=== PATIENT | male | born 1955 | race Caucasian/White ===

== ENCOUNTER 2017-08-22 15:28 | Outpatient (RCR) | payer OTHER ==
[~2017-08-22 15:28] MED LIST: APIX5TAB PO; ASPI-715 PO; ATOR-1 PO; ATOR10TA65 PO; ATOR40TA24 PO; CANA100T PO; CANA300T PO; CARV25TA78 PO; CARVEDILOL; CYAN500T38 PO; DOCU-416 PO; GLI5 PO; INSU100I30 SQ; INSU100I35 SQ; INSU100V24 SQ; ISOS1POW2 MC; ISOS30TA54 PO; ISOSORBIDE; KRIL1CAP6 PO; KRIL500C2 PO; LANI SUBQ; LISI2.5T60 PO; LISI20TA29 PO; LISINOPRIL; MEPE50TA29 PO; MET500 PO; METF-410 PO; METF-420 PO; NITR0.4T3 SL; ONDA8TAB91 PO; OXYC-865 PO; PEN1DIS. MC; TURM500C7 PO; UBID100C48 PO; [UNRECOGNIZED DRUG - CODE] ASDIRECTED; [UNRECOGNIZED DRUG - OTHER]
[2017-08-27] MEDS ORDERED: IOPAMIDOL 76% 75 ML INFUS BTL 75 ML ONE (09:25)
[2017-08-27] MEDS ORDERED: NS 0.9% 50 ML VIAL 50 ML ONE (09:26)
[2017-09-24] MEDS ORDERED: GOLYTE PO (16:19)
== END 2017-09-26 ==
LOC: CT 15:28
PROVIDERS: ATTEND Internal Medicine Hematology
DX: Z02.9 Encounter for administrative examinations, unspecified (principal)
CPT/HCPCS: J7050; Q9967

== ENCOUNTER 2017-10-13 17:16 | Emergency (ER) | payer OTHER ==
[~2017-10-13] VITALS: Ht 177.8 cm; Wt 120.7 kg
[~2017-10-13 17:16] MED LIST changes: +GOLYTE PO
--- NOTE | 2017-10-13 17:36 | ER Report ---
History and Physical Time Seen By MD: 17:36 Hx. of Stated Complaint: Pt has been "tight" and sob today. He has had the flu and has been battling a sinus infection. (SARITHA SAUNDERS MD) HPI/ROS CHIEF COMPLAINT: cough, shortness of breath HISTORY OF PRESENT ILLNESS: This is a 62 year old male. He has been coughing and short of breath for a week, worsening over the last few days. Seen at urgent care and started on Doxycycline for a borderline pneumonia. He is positive for influenza B, was too far along to start Tamiflu, but his did take it prophylactically. He has a prescription for Benzonatate, but this is not helping at all with cough. Has had some problems with nausea when trying Codeine in the past. He has an albuterol inhaler which was helping when using it. He feels like when he falls asleep, he awakes gasping for breath. Having intermittent fevers and chills. REVIEW OF SYSTEMS: Constitutional: No fever or chills. Eyes: No vision changes. ENT: Significant congestion. Cardiovascular: No chest pain. Respiratory: As above. Gastrointestinal: No abdominal pain. No nausea or vomiting. Musculoskeletal: some rib pain from coughing. Skin: No rashes. Neurological: No weakness. Mild headache with cough. (SARITHA SAUNDERS MD) Allergies: Coded Allergies: codeine (Unverified Allergy, Intermediate, NAUSEA/VOMITING, 10/13/17) Home Meds Active Scripts Prednisone (PREDNISONE) 20 Mg Tablet, 40 MG PO DAILY Y for ANXIETY for 5 Days, # 10 TAB Prov:SOMMER HUNG MD 10/13/17 Peg/Electrolytes (GOLYTELY SOLUTION) 4,000 Ml Soln, 1 GAL PO ONCE, #1 GAL 0 Refills Prov:DEBORAH ARAGON MD 09/24/17 Insulin Glargine,Hum.rec.anlog (LANTUS SOLOSTAR) 100 Unit/1 Ml Insuln.pen, 50 UNIT SQ BID, #33 CART 4 Refills Prov:SAGAR MAR MD 04/03/17 Blood Sugar Diagnostic, Drum (Accu-Chek Compact Plus) 1 Each Strip, 1 STRIP ASDIRECTED 6XD, #2 BOX 11 Refills Test up to 6 times per day. Prov:SAGAR MAR MD 01/23/17 Insulin Aspart (NOVOLOG FLEXPEN) 100 Unit/1 Ml Insuln.pen, 5 UNIT SQ DIRECTED for 1 Day, #1 CART 11 Refills 5 units daily before lunch Prov:SAGAR MAR MD 01/10/17 Canagliflozin (INVOKANA) 300 Mg Tablet, 1 TAB PO DAILY, #90 TAB 3 Refills Prov:SAGAR MAR MD 12/31/16 Pen Needle, Diabetic, Safety (PEN NEEDLE) 1 Each Dis.needle, 1 EACH MC BID, # 180 3 Refills Prov:SAGAR MAR MD 12/11/16 Metformin Hcl (METFORMIN HCL) 1,000 Mg Tablet, 1 TAB PO BID, #180 TAB 3 Refills Prov:SAGAR MAR MD 12/11/16 Reported Medications Ubidecarenone (COQ-10) 100 Mg Capsule, 1 CAP PO DAILY, CAPSULE 01/10/17 Nitroglycerin (NITROGLYCERIN) Unknown Strength Tab.subl, SL Q5MIN 01/10/17 Cyanocobalamin (Vitamin B-12) (VITAMIN B-12) 500 Mcg Tablet, 1-2 TAB PO DAILY 12/11/16 Isosorbide Mononitrate (ISOSORBIDE MONONITRATE ER) 30 Mg Tab.er.24h, 30 MG PO BID 02/27/16 Lisinopril (LISINOPRIL) 20 Mg Tablet, 20 MG PO QDAY, TAB 02/27/16 Carvedilol (CARVEDILOL) 25 Mg Tablet, 25 MG PO BID, TAB 02/27/16 Turmeric Root Extract (TURMERIC) Unknown Strength Capsule, 500 MG PO TID, CAPSULE 02/07/16 Krill Oil (KRILL OIL) Unknown Strength Capsule, 500 MG PO DAILY, CAPSULE 02/07/16 Reviewed Nurses Notes: Yes (SARITHA SAUNDERS MD) Hx Smoking: Yes (PT QUIT IN 2006, SMOKED 1 PPD X 40 YEARS) Smoking Status: Former Smoker Exposure to Second Hand Smoke?: Yes Hx Substance Use Disorder: No Hx Alcohol Use: No (SARITHA SAUNDERS MD) Constitutional Vital Sign - Last 24 Hours 10/13/17 10/13/17 10/13/17 10/13/17 17:21 17:26 17:31 18:01 Temp 98.2 Pulse 72 75 74 Resp 20 25 B/P (MAP) 157/88 (111) 157/88 Pulse Ox 91 96 92 O2 Delivery Room Air 10/13/17 10/13/17 10/13/17 10/13/17 18:10 18:10 18:16 18:25 Pulse 77 78 76 Resp 16 16 Pulse Ox 92 92 O2 Delivery Room Air 10/13/17 10/13/17 10/13/17 18:31 18:46 18:54 Pulse 72 76 B/P (MAP) 154/82 (106) Pulse Ox 89 90 (SOMMER HUNG MD) Physical Exam General Appearance: The patient is alert. No acute distress. Eyes: Pupils are equal, round. No pallor, injection or icterus. ENT: Mucous membranes are moist. Normal oral mucosa. Posterior oropharynx was erythematous with post nasal drainage. Nasal mucosa erythematous and lots of mucous. Normal tympanic membranes with effusions, but no redness or bulging. Neck: Supple and non tender. Respiratory: Lungs with wheezing on the right and diminished with some fine rales in the right base. Cardiovascular: Regular rate and rhythm. No murmurs, gallops or rubs. Normal capillary refill. Gastrointestinal: Abdomen is soft and non tender. Nondistended. Neurological: Alert and oriented x3. No focal neurologic deficits Skin: Warm and dry. DIFFERENTIAL DIAGNOSIS: After history and physical exam, differential diagnosis was considered for shortness of breath including but not limited to pulmonary infectious process, COPD, asthma, pulmonary embolus and congestive heart failure. ([facility] MD) Medical Decision Making Data Points Result Diagram: 10/13/17 1755 10/13/17 1755 Laboratory Hematology Test 10/13/17 17:55 Red Blood Count 5.76 M/uL (4.00-5.60) Mean Corpuscular Volume 83.5 fL (80.0-96.0) Mean Corpuscular Hemoglobin 28.9 pg (26.0-33.0) Mean Corpuscular Hemoglobin Concent 34.6 g/dL (32.0-36.0) Red Cell Distribution Width 14.0 % (11.5-14.5) Mean Platelet Volume 8.3 fL (7.2-11.1) Neutrophils (%) (Auto) 66.2 % (39.4-72.5) Lymphocytes (%) (Auto) 23.4 % (17.6-49.6) Monocytes (%) (Auto) 9.3 % (4.1-12.4) Eosinophils (%) (Auto) 0.9 % (0.4-6.7) Basophils (%) (Auto) 0.2 % (0.3-1.4) Nucleated RBC Relative Count (auto) 0.1 /100WBC Neutrophils # (Auto) 6.0 K/uL (2.0-7.4) Lymphocytes # (Auto) 2.1 K/uL (1.3-3.6) Monocytes # (Auto) 0.8 K/uL (0.3-1.0) Eosinophils # (Auto) 0.1 K/uL (0.0-0.5) Basophils # (Auto) 0.0 K/uL (0.0-0.1) Nucleated RBC Absolute Count (auto) 0.00 K/uL Sodium Level 133 mmol/L (137-145) Potassium Level 4.1 mmol/L (3.5-5.0) Chloride Level 99 mmol/L (98-107) Carbon Dioxide Level 24 mmol/L (22-30) Blood Urea Nitrogen 10 mg/dl (9-21) Creatinine 0.50 mg/dl (0.66-1.25) Glomerular Filtration Rate Calc > 60.0 Random Glucose 331 mg/dl (75-110) Lactate 1.2 mmol/L (0.7-2.1) Calcium Level 9.1 mg/dl (8.4-10.2) Total Bilirubin 0.8 mg/dl (0.2-1.3) Aspartate Amino Transf (AST/SGOT) 22 U/L (0-35) Alanine Aminotransferase (ALT/SGPT) 34 U/L (0-56) Alkaline Phosphatase 85 U/L (0-126) Troponin I < 0.012 ng/ml Total Protein 7.6 gm/dl (6.3-8.2) Albumin 3.8 g/dl (3.5-5.0) Chemistry Test 10/13/17 17:55 White Blood Count 9.1 k/uL (4.5-11.0) Red Blood Count 5.76 M/uL (4.00-5.60) Hemoglobin 16.6 g/dL (14.0-18.0) Hematocrit 48.1 % (42.0-52.0) Mean Corpuscular Volume 83.5 fL (80.0-96.0) Mean Corpuscular Hemoglobin 28.9 pg (26.0-33.0) Mean Corpuscular Hemoglobin Concent 34.6 g/dL (32.0-36.0) Red Cell Distribution Width 14.0 % (11.5-14.5) Platelet Count 254 K/uL (150-450) Mean Platelet Volume 8.3 fL (7.2-11.1) Neutrophils (%) (Auto) 66.2 % (39.4-72.5) Lymphocytes (%) (Auto) 23.4 % (17.6-49.6) Monocytes (%) (Auto) 9.3 % (4.1-12.4) Eosinophils (%) (Auto) 0.9 % (0.4-6.7) Basophils (%) (Auto) 0.2 % (0.3-1.4) Nucleated RBC Relative Count (auto) 0.1 /100WBC Neutrophils # (Auto) 6.0 K/uL (2.0-7.4) Lymphocytes # (Auto) 2.1 K/uL (1.3-3.6) Monocytes # (Auto) 0.8 K/uL (0.3-1.0) Eosinophils # (Auto) 0.1 K/uL (0.0-0.5) Basophils # (Auto) 0.0 K/uL (0.0-0.1) Nucleated RBC Absolute Count (auto) 0.00 K/uL Glomerular Filtration Rate Calc > 60.0 Lactate 1.2 mmol/L (0.7-2.1) Calcium Level 9.1 mg/dl (8.4-10.2) Total Bilirubin 0.8 mg/dl (0.2-1.3) Aspartate Amino Transf (AST/SGOT) 22 U/L (0-35) Alanine Aminotransferase (ALT/SGPT) 34 U/L (0-56) Alkaline Phosphatase 85 U/L (0-126) Troponin I < 0.012 ng/ml Total Protein 7.6 gm/dl (6.3-8.2) Albumin 3.8 g/dl (3.5-5.0) (SOMMER HUNG MD) ED Course/Re-evaluation Clinical Indication for ER IV: Hydration, IV Access ED Course Some improvement with Albuterol/Ipratropium nebulizer and with Solu-Medrol 125mg IV. CBC is normal and CMP is normal as well. After the steroid and nebulizer, he can sleep easier, but awakes with the gasping. We have not seen his saturations decrease. (SARITHA SAUNDERS MD) ED Course Assumed care 6pm; pt reports much improvement with ED therapy at 10/13/2017 8: 11:39 pm . All results were reviewed and discussed all questions answered and understood home prescription for prednisone 5 days albuterol spacer provided with MDI previously prescribed. Decision to Disposition Date: Oct 13, 2017 Decision to Disposition Time: 20:12 (SOMMER HUNG MD) Depart Departure Latest Vital Signs Vital Signs Date Time Temp Pulse Resp B/P (MAP) Pulse Ox O2 Delivery O2 Flow Rate FiO2 10/13/17 18:54 154/82 (106) 10/13/17 18:46 76 90 10/13/17 18:25 16 10/13/17 18:10 Room Air 10/13/17 17:26 98.2 (SOMMER HUNG MD) Impression: Primary Impression: Upper respiratory infection Condition: Improved Disposition: HOME OR SELF-CARE Referrals: SAGAR MAR MD (PCP) New Scripts Prednisone (PREDNISONE) 20 Mg Tablet 40 MG PO DAILY Y for ANXIETY for 5 Days, #10 TAB Prov: OSMMER HUNG MD 10/13/17 SARITHA SAUNDERS MD Oct 13, 2017 17:36 SOMMER HUNG MD Oct 13, 2017 20:15
[2017-10-13] MEDS ORDERED: ALBUTEROL/IPRATROPIUM 3 ML NEB NEB ONE (18:05)
[2017-10-13] MEDS ORDERED: methylPREDNIS SUCC 125 MG/2ML IVP ONE (18:05)
[2017-10-13 18:20] LABS: PLATELET COUNT, AUTOMATED 254 K/uL (150-450)
[2017-10-13] MEDS ORDERED: IOPAMIDOL 76% 100 ML INFUS BTL 100 ML ONE (18:53)
[2017-10-13] MEDS ORDERED: NS 0.9% 20 ML SDV 100 ML ONE (18:54)
[2017-10-13 19:30] VITALS: BP 141/87
--- NOTE | 2017-10-13 19:47 | RADIOLOGY IMAGING REPORT ---
FACILITY: [facility] - [place] PATIENT NAME: Osei Magana : 1955 MR: [id number] V: [id number] EXAM DATE: ORDERING PHYSICIAN: SARITHA SAUNDERS TECHNOLOGIST: Location: [facility] - [place] Patient: Osei Magana : 1955 Visit/Account:[id number] Date of Sevice: 10/13/2017 EXAMINATION: CT CHEST PULMONARY ANGIOGRAM COMPARISON: 08/27/2017 and earlier. HISTORY: cough, short of breath PROCEDURE: Pulmonary arterial phase imaging of the chest with 100 mL intravenous Isovue 370. Reconstr uction of the source data set includes multiplanar 2D in the sagittal and coronal planes, and 3D wesly nstructed coronal slab MIP series. One of the following dose optimization techniques was utilized in the performance of this exam: Autom ated exposure control; adjustment of the mA and/or kV according to the patient's size; or use of an i terative reconstruction technique. Specific details can be referenced in the facility's radiology C T exam operational policy. FINDINGS: Pulmonary vasculature: There is good contrast opacification of the pulmonary arterial system. No pul monary embolism. Main pulmonary artery size is normal. Cardiac and mediastinum: Cardiac chamber size is normal. Advanced coronary calcifications. No pericar dial effusion. No thoracic aortic aneurysm. No thoracic lymph node enlargement. Lungs and pleura: Subcentimeter region of benign-appearing nodular thickening along the right minor f issure and left lower lobe nodules measuring up to 6 mm are unchanged since 06/08/2016. No new or enla rging consolidation or nodule. No pneumothorax, edema, or effusion. Airways: The central airways are patent. Upper abdomen: No evidence of acute disease within the visualized upper abdomen. Osseous structures: Mild degenerative change throughout the visualized spine. No acute osseous abnorm ality. IMPRESSION: 1. No pulmonary embolism or evidence of acute cardiopulmonary disease. 2. Advanced coronary calcifications. Report Dictated By: Stewart Rogers MD at 10/13/2017 7:32 PM Report E-Signed By: Stewart Rogers MD at 10/13/2017 7:42 PM WSN:[id number]
[2017-10-13] MEDS ORDERED: PRED20TA6 PO (20:15)
== END 2017-10-13 20:24 | disposition home or self-care (01) ==
LOC: ER 17:32
DX: J06.9 Acute upper respiratory infection, unspecified (principal)
CPT/HCPCS: 71275; 83605; 84484; 85025; 94640; 96374; 99284; J2930; J7050; J7620; Q9967; 82040; 82247; 82310; 82374; 82435; 82565; 82947; 84075; 84132; 84155; 84295; 84450; 84460; 84520

== ENCOUNTER → 2018-02-17 | Outpatient (CLI) | payer OTHER ==
[~2018-02-17] MED LIST changes: -METF-410 PO; +METF-411 PO; -METF-420 PO; +METF-421 PO; +PRED20TA6 PO
--- NOTE | 2018-02-17 16:56 | RADIOLOGY IMAGING REPORT ---
FACILITY: [facility] - [place] PATIENT NAME: Osei Magana : 1955 MR: [id number] V: [id number] EXAM DATE: ORDERING PHYSICIAN: JR GAVIRIA TECHNOLOGIST: Location: [facility] - [place] Patient: Osei Magana : 1955 Visit/Account:[id number] Date of Sevice: 02/17/2018 EXAMINATION: Single isotope SPECT imaging with regadenoson infusion and gated SPECT imaging. DATE OF EXAMINATION: 02/17/2018 . DATE OF INTERPRETATION: 02/17/2018. REQUESTING PHYSICIAN: JR GAVIRIA M.D. INDICATION: [CAD ]. PROCEDURE: After informed consent the patient received an intravenous injection of 12.7 mCi of Tc-99 m sestamibi followed at an appropriate time interval by rest imaging. The patient then subsequently received an intravenous infusion of 0.4 mg of regadenoson per protocol without complication. Baselin e EKG demonstrates NSR. There were no EKG changes of ischemia following infusion. Symptoms were non specific. The patient then received an intravenous injection of 27.8 mCi of Tc-99m sestamibi followe d by stress imaging. RAW DATA: Examination of the summed raw data revealed a good quality study. MYOCARDIAL PERFUSION: The tomographic images demonstrate no evidence of infarct or ischemia. GATED IMAGES: The gated images demonstrate EF 66% without SWMA. IMPRESSION: 1. Normal EKG response to Lexiscan. 2. Normal myocardial perfusion scan. 3. Normal LV systolic function; LVEF 66%. 4. Based on the results of this exam, the patient appears to be at low risk for future cardiovascular events in the short term, with moderate prison risk due to need for Lexiscan as opposed to ETT Report Dictated By: Beto Guadalupe at 02/17/2018 4:42 PM Report E-Signed By: Beto Guadalupe at 02/17/2018 4:52 PM WSN:[id number]
--- NOTE | 2018-02-17 20:50 | RT STRESS TEST REPORT ---
FACILITY: [facility] - [place] PATIENT NAME: DAVID LANDA : [id number] MR: [id number] V: [id number] EXAM DATE: ORDERING PHYSICIAN: JAY PATTON TECHNOLOGIST: [employer] Time: 2018-02-17 14:27:15 Total Exercise Time: 00:03:43 Test Indications: Chest Discomfort Medications: see nuc med sheet Protocol: FIORDALIZA 2 Max HR: 146 BPM 92% of Pred: 157 BPM Max BP: 195/098 mmHG Max Work Load: 5.4 METS Confirmed by JANINE ROBERTS ([id number]) on 02/17/2018 8:49:29 PM Referred By: Jay Patton Overread By: JANINE ROBERTS
== END ==
LOC: NUC 02:35
PROVIDERS: ATTEND Internal Medicine Cardiovascular Disease
DX: I25.811 Atherosclerosis of native coronary artery of transplanted heart without angina pectoris (principal); E78.00 Pure hypercholesterolemia, unspecified
CPT/HCPCS: 36415; 78452; 93017; A9500; 82465; 83718; 84478

== ENCOUNTER → 2018-03-10 | Outpatient (CLI) | payer OTHER | LOC: LAB 16:20 | PROVIDERS: ATTEND Surgery | DX: L81.4 Other melanin hyperpigmentation (principal); C44.219 Basal cell carcinoma of skin of left ear and external auricular canal | CPT/HCPCS: 88305 ==

== ENCOUNTER → 2018-04-15 | Outpatient (CLI) | payer OTHER | LOC: LAB 17:22 | PROVIDERS: ATTEND Surgery | DX: C44.219 Basal cell carcinoma of skin of left ear and external auricular canal (principal) | CPT/HCPCS: 88305 ==

== ENCOUNTER → 2018-07-15 | Outpatient (CLI) | payer OTHER ==
[~2018-07-15] MED LIST changes: +CHOL10005 PO; -METF-411 PO; -METF-421 PO; +METF-450 PO; +METF-452 PO
== END ==
LOC: AUD 14:45
PROVIDERS: ATTEND Emergency Medicine
DX: H91.91 Unspecified hearing loss, right ear (principal)
CPT/HCPCS: 92557; 92570

== ENCOUNTER → 2018-08-28 | Outpatient (CLI) | payer OTHER ==
[~2018-08-28] MED LIST changes: +IOPAMIDOL 76% 50 ML INFUS BTL 100 ML ONE
--- NOTE | 2018-08-28 17:25 | RADIOLOGY IMAGING REPORT ---
FACILITY: [facility] PATIENT NAME: Osei Magana : 1955 MR: [id number] V: [id number] EXAM DATE: ORDERING PHYSICIAN: TOMASZ LORENZO TECHNOLOGIST: Location: [facility] - [place] Patient: Osei Magana : 1955 Visit/Account:[id number] Date of Sevice: 08/28/2018 CHEST/AB/PELV W/CONTRAST HISTORY: Melanoma carcinomatosis ADDITIONAL HISTORY: None. TECHNIQUE: Following administration of IV contrast axial images acquired through the chest abdomen a nd pelvis during the portal venous phase. Coronal and sagittal reformatting was also performed.Dose Lowering Technique One of the following dose optimization techniques was utilized in the performance of this exam: Autom ated exposure control; adjustment of the mA and/or kV according to the patient's size; or use of an i terative reconstruction technique. Specific details can be referenced in the facility's radiology C T exam operational policy. CONTRAST: 75 mL Isovue-370 COMPARISON: CT chest abdomen pelvis August 27, 2017. FINDINGS: CHEST: Lungs/Pleura: The intrafissural lymph node along the right minor fissure appears stable. The previously noted 5 mm nodule medial aspect left lower lobe appears stable and is best seen on gal ge 300 of series 3. The previously noted 5 mm nodule lateral aspect left lower lobe appears unchange d. No new pulmonary nodules are seen. Mediastinum/lymph nodes: Negative. Heart/vessels: There are coronary artery vascular calcifications and/or stents Bones/soft tissues: There is a 1.5 x 0.7 x 0.5 cm focal area of increased density just beneath the s kin in the subcutaneous fat along the anterolateral upper left chest wall. This appears slightly mor e prominent when compared the prior study. This could be related to post surgical change although cl inical correlation needed. Small focal sclerotic area medial right clavicle has remained stable ABDOMEN AND PELVIS: Hepatobiliary: Spleen: Accessory splenule Pancreas: Negative. Adrenals: Negative. Kidneys ureters and bladder : Negative. Genitalia: Negative. GI: Negative. Vessels/spaces/nodes: Negative. Bones/soft tissues: Small right inguinal hernia containing fat. Mild spondylotic changes lumbar spi ne Additional findings: None pertinent. IMPRESSION: There is a 1.5 x 0.7 x 0.5 cm focal area of increased density just beneath the skin in the subcutaneo us fat along the anterolateral upper left chest wall. This appears slightly more prominent when comp ared the prior study. This may simply represent postsurgical change although clinical correlation ne eded. Otherwise no evidence of metastatic disease. Additional chronic findings as described Report Dictated By: Claribel Sharp MD at 08/28/2018 5:07 PM Report E-Signed By: Claribel Sharp MD at 08/28/2018 5:21 PM WSN:[email or web address]
== END ==
LOC: CT 08-27 13:19
PROVIDERS: ATTEND Nurse Practitioner Family
DX: C43.9 Malignant melanoma of skin, unspecified (principal); D03.9 Melanoma in situ, unspecified
CPT/HCPCS: 71260; 74177; Q9967

== ENCOUNTER 2018-11-21 09:22 | Emergency (ER) | payer OTHER ==
[~2018-11-21 09:22] MED LIST changes: -IOPAMIDOL 76% 50 ML INFUS BTL 100 ML ONE
[2018-11-21] MEDS ORDERED: DULA0.75 (09:34)
[2018-11-21] MEDS ORDERED: DEXAMETHASONE SOD PHOS 10MG/ML IVP ONE (09:35)
[2018-11-21] MEDS ORDERED: DIAZEPAM 5 MG TAB PO ONE (09:35)
[2018-11-21] MEDS ORDERED: KETOROLAC 30 MG/ML VIAL IVP ONE (09:35)
--- NOTE | 2018-11-21 09:35 | ER Report ---
History and Physical Time Seen By MD: 09:35 Hx. of Stated Complaint: patient reports moving firewood three weeks ago and hurting his low back. Has been to the chiropractor twice and has not improved and is having trouble moving HPI/ROS 63 y/o male with a history of melanoma excised 2.5 years ago, presents to the ED with ongoing back pain for one month. Pain started with lifting firewood. Had some relief from chiropractor, but pain has returned and is ongoing. It is in his midline L-spine. Describes difficulty rising from a seated position some from pain, but also feels as if his back muscles are "weak." No bowel or bladder changes. No lower extremity weakness. No abdominal pain. No weight loss or night sweats. Remainder of the 14 system rev: Yes Allergies: Coded Allergies: codeine (Unverified Allergy, Intermediate, NAUSEA/VOMITING, 10/13/17) Home Meds Active Scripts Prednisone (PREDNISONE) 20 Mg Tablet, 40 MG PO DAILY PRN for ANXIETY for 5 Days, #10 TAB Prov:SOMMER HUNG MD 10/13/17 Peg/Electrolytes (GOLYTELY SOLUTION) 4,000 Ml Soln, 1 GAL PO ONCE, #1 GAL 0 Refills Prov:DEBORAH ARAGON MD 09/24/17 Insulin Glargine 100 Un/Ml Pen (LANTUS SOLOSTAR PEN) 100 Unit/1 Ml Insuln.pen, 50 UNIT SQ BID, #33 CART 4 Refills Prov:SAGAR MAR MD 04/03/17 Blood Sugar Diagnostic, Drum (Accu-Chek Compact Plus) 1 Each Strip, 1 STRIP ASDIRECTED 6XD, #2 BOX 11 Refills Test up to 6 times per day. Prov:SAGAR MAR MD 01/23/17 Insulin Aspart 100 Un/Ml Pen (NOVOLOG FLEXPEN) 100 Unit/1 Ml Insuln.pen, 5 UNIT SQ DIRECTED for 1 Day, #1 CART 11 Refills 5 units daily before lunch Prov:SAGAR MAR MD 01/10/17 Canagliflozin (INVOKANA) 300 Mg Tablet, 1 TAB PO DAILY, #90 TAB 3 Refills Prov:SAGAR MAR MD 12/31/16 Pen Needle, Diabetic, Safety (PEN NEEDLE) 1 Each Dis.needle, 1 EACH MC BID, #180 3 Refills Prov:SAGAR MAR MD 12/11/16 Metformin Hcl (METFORMIN HCL) 1,000 Mg Tablet, 1 TAB PO BID, #180 TAB 3 Refills Prov:SAGAR MAR MD 12/11/16 Reported Medications Dulaglutide (Trulicity) 0.75 Mg/0.5 Ml Pen.injctr, 0.75 MG Q7DAY 11/21/18 Cholecalciferol (Vitamin D3) (VITAMIN D3) 1,000 Unit Tablet, 2000 UNIT PO BID, TAB 04/28/18 Ubidecarenone (COQ-10) 100 Mg Capsule, 1 CAP PO DAILY, CAPSULE 01/10/17 Nitroglycerin (NITROGLYCERIN) Unknown Strength Tab.subl, SL Q5MIN 01/10/17 Cyanocobalamin (Vitamin B-12) (VITAMIN B-12) 500 Mcg Tablet, 1-2 TAB PO DAILY 12/11/16 Isosorbide Mononitrate (ISOSORBIDE MONONITRATE ER) 30 Mg Tab.er.24h, 30 MG PO BID 02/27/16 Lisinopril (LISINOPRIL) 20 Mg Tablet, 20 MG PO QDAY, TAB 02/27/16 Carvedilol (CARVEDILOL) 25 Mg Tablet, 25 MG PO BID, TAB 02/27/16 Turmeric Root Extract (TURMERIC) Unknown Strength Capsule, 500 MG PO TID, CAPSULE 02/07/16 Krill Oil (KRILL OIL) Unknown Strength Capsule, 500 MG PO DAILY, CAPSULE 02/07/16 Reviewed Nurses Notes: Yes Old Medical Records Reviewed: Yes Hx Smoking: Yes (PT QUIT IN 2006, SMOKED 1 PPD X 40 YEARS) Smoking Status: Former Smoker Exposure to Second Hand Smoke?: Yes Hx Substance Use Disorder: No Hx Alcohol Use: No Constitutional Vital Sign - Last 24 Hours 11/21/18 11/21/18 09:26 10:19 Temp 98.6 Pulse 94 Resp 16 B/P (MAP) 146/79 Pulse Ox 93 O2 Delivery Room Air O2 Flow Rate 2.0 Physical Exam General Appearance: The patient is alert, has no immediate need for airway protection and no current signs of toxicity. Eyes: Pupils equal and round no injection. Respiratory: Chest is non tender, lungs are clear to auscultation. Cardiac: regular rate and rhythm Gastrointestinal: Abdomen is soft and non tender, no masses, bowel sounds normal. Musculoskeletal: Mild TTP at the L3/L4 midline spine. No muscle spasm laterally to the L-spine. No stepoffs Neck: Neck is supple and non tender. Neuro: strength and sensation grossly in tact DIFFERENTIAL DIAGNOSIS: After history and physical exam differential diagnosis was considered for back pain including but not limited to muscular pain, herniated disc, spine fracture, intra-abdominal causes and urinary tract infection. Medical Decision Making Data Points Result Diagram: 11/21/18 1000 11/21/18 1000 Laboratory Hematology Test 11/21/18 10:00 Red Blood Count 5.86 M/uL (4.00-5.60) Mean Corpuscular Volume 86.2 fL (80.0-96.0) Mean Corpuscular Hemoglobin 29.1 pg (26.0-33.0) Mean Corpuscular Hemoglobin Concent 33.7 g/dL (32.0-36.0) Red Cell Distribution Width 13.8 % (11.5-14.5) Mean Platelet Volume 8.2 fL (7.2-11.1) Neutrophils (%) (Auto) 64.5 % (39.4-72.5) Lymphocytes (%) (Auto) 19.2 % (17.6-49.6) Monocytes (%) (Auto) 13.5 % (4.1-12.4) Eosinophils (%) (Auto) 1.9 % (0.4-6.7) Basophils (%) (Auto) 0.9 % (0.3-1.4) Nucleated RBC Relative Count (auto) 0.0 /100WBC Neutrophils # (Auto) 3.8 K/uL (2.0-7.4) Lymphocytes # (Auto) 1.1 K/uL (1.3-3.6) Monocytes # (Auto) 0.8 K/uL (0.3-1.0) Eosinophils # (Auto) 0.1 K/uL (0.0-0.5) Basophils # (Auto) 0.1 K/uL (0.0-0.1) Nucleated RBC Absolute Count (auto) 0.00 K/uL Sodium Level 136 mmol/L (137-145) Potassium Level 3.9 mmol/L (3.5-5.0) Chloride Level 101 mmol/L (98-107) Carbon Dioxide Level 24 mmol/L (22-30) Blood Urea Nitrogen 15 mg/dl (9-21) Creatinine 0.60 mg/dl (0.66-1.25) Glomerular Filtration Rate Calc > 60.0 Random Glucose 303 mg/dl (75-110) Calcium Level 8.5 mg/dl (8.4-10.2) Total Bilirubin 0.5 mg/dl (0.2-1.3) Aspartate Amino Transf (AST/SGOT) 22 U/L (0-35) Alanine Aminotransferase (ALT/SGPT) 24 U/L (0-56) Alkaline Phosphatase 80 U/L (0-126) Total Protein 7.3 g/dl (6.3-8.2) Albumin 4.0 g/dl (3.5-5.0) Chemistry Test 11/21/18 10:00 White Blood Count 5.9 k/uL (4.5-11.0) Red Blood Count 5.86 M/uL (4.00-5.60) Hemoglobin 17.0 g/dL (14.0-18.0) Hematocrit 50.5 % (42.0-52.0) Mean Corpuscular Volume 86.2 fL (80.0-96.0) Mean Corpuscular Hemoglobin 29.1 pg (26.0-33.0) Mean Corpuscular Hemoglobin Concent 33.7 g/dL (32.0-36.0) Red Cell Distribution Width 13.8 % (11.5-14.5) Platelet Count 252 K/uL (150-450) Mean Platelet Volume 8.2 fL (7.2-11.1) Neutrophils (%) (Auto) 64.5 % (39.4-72.5) Lymphocytes (%) (Auto) 19.2 % (17.6-49.6) Monocytes (%) (Auto) 13.5 % (4.1-12.4) Eosinophils (%) (Auto) 1.9 % (0.4-6.7) Basophils (%) (Auto) 0.9 % (0.3-1.4) Nucleated RBC Relative Count (auto) 0.0 /100WBC Neutrophils # (Auto) 3.8 K/uL (2.0-7.4) Lymphocytes # (Auto) 1.1 K/uL (1.3-3.6) Monocytes # (Auto) 0.8 K/uL (0.3-1.0) Eosinophils # (Auto) 0.1 K/uL (0.0-0.5) Basophils # (Auto) 0.1 K/uL (0.0-0.1) Nucleated RBC Absolute Count (auto) 0.00 K/uL Glomerular Filtration Rate Calc > 60.0 Calcium Level 8.5 mg/dl (8.4-10.2) Total Bilirubin 0.5 mg/dl (0.2-1.3) Aspartate Amino Transf (AST/SGOT) 22 U/L (0-35) Alanine Aminotransferase (ALT/SGPT) 24 U/L (0-56) Alkaline Phosphatase 80 U/L (0-126) Total Protein 7.3 g/dl (6.3-8.2) Albumin 4.0 g/dl (3.5-5.0) ED Course/Re-evaluation ED Course History of melanoma. Excised to have years ago. Per the patient it was a large melanoma, and oncologist told the patient it was likely present as metastasis in future years. Back pain for one month after lifting firewood. Normal neuro exam, however patient describes objective weakness in his lower back. MR eye shows possible metastasis to L3. No acute fractures. Pain controlled with morphine. I have counseled the patient is to the findings. I will discharge him with Vicodin and stool softener. I made him a follow-up appointment at [facility] for Saturday, 11/25 at 0915. Decision to Disposition Date: Nov 21, 2018 Decision to Disposition Time: 13:35 Depart Departure Latest Vital Signs Vital Signs Date Time Temp Pulse Resp B/P (MAP) Pulse Ox O2 Delivery O2 Flow Rate FiO2 11/21/18 10:19 2.0 11/21/18 09:26 98.6 94 16 146/79 93 Room Air Impression: Primary Impression: Back pain Condition: Improved Disposition: HOME OR SELF-CARE Referrals: TOMASZ LORENZO ASSOCIATE PROFESSOR OF CHEMISTRY-BC, ONC (PCP) New Scripts Docusate Sodium (COLACE) 100 Mg Capsule 100 MG PO BID, #20 CAPSULE Prov: CANDIDA TURCIOS MD 11/21/18 Hydrocodone Bit/Acetaminophen (HYDROCODON-ACETAMINOPHEN 5-325) 1 Each Tablet 1 EACH PO Q6H for 10 Days, #14 TAB Prov: CANDIDA TURCIOS MD 11/21/18 Patient Instructions: Acute Low Back Pain (ED) Problem Qualifiers Primary Impression: Back pain Back pain location: low back pain Chronicity: acute Back pain laterality: midline Sciatica presence: without sciatica Qualified Codes: M54.5 - Low back pain CANDIDA TURCIOS MD Nov 21, 2018 09:35
--- NOTE | 2018-11-21 11:12 | RADIOLOGY IMAGING REPORT ---
FAC[place] [facility] [place]IENT NAME: Osei Magana : 1955 MR: [id number] V: [id number] EXAM DATE: ORDERING PHYSICIAN: CANDIDA TURCIOS TECHNOLOGIST: Location: [facility] - [place] Patient: Osei Magana : 1955 Visit/Account:[id number] Date of Sevice: 11/21/2018 Lumbar spine, three views. HISTORY: Weeks of midline pain after lifting. COMPARISON: None. Small to moderate-sized endplate osteophytes without loss of disc height are present at multiple lumb ar and lower thoracic levels. The L5-S1 facets are hypertrophic. No acute fractures. The sacroilia c joints are unremarkable. A phlebolith is present in the left true pelvis. IMPRESSION: Mild to moderate multilevel degenerative disc disease. Report Dictated By: Franco Grubbs MD at 11/21/2018 11:07 AM Report E-Signed By: Franco Grubbs MD at 11/21/2018 11:09 AM WSN:[email or web address]
[2018-11-21] MEDS ORDERED: GADOBENATE 529MG/1ML 15ML VIAL IVP ONE (11:41)
--- NOTE | 2018-11-21 12:28 | RADIOLOGY IMAGING REPORT ---
FACILITY: [facility] - [place] PATIENT NAME: Osei Magana : 1955 MR: [id number] V: [id number] EXAM DATE: ORDERING PHYSICIAN: CANDIDA TURCIOS TECHNOLOGIST: Location: [facility] Patient: Osei Magana : 1955 Visit/Account:[id number] Date of Sevice: 11/21/2018 Study: MRI lumbar spine without and with gadolinium contrast. Indication:Low back pain Comparison study:None Technique:Multiplanar MRI sequences were obtained through the lumbar spine without and with the use o f gadolinium contrast. Contrast utilized: 15 mL MultiHance Findings:The examination demonstrates the presence of normal alignment of the lumbar vertebrae. There is an area of high T2-weighted signal within the posterior L3 vertebral body. This enhances after t he administration of gadolinium contrast. This likely represents an atypical hemangioma, however a m etastatic lesion cannot be ruled out. The conus medullaris is located posterior to the T12/L1 disc space level. There is no evidence of abnormality of the lumbar nerve roots. Disc spaces: L1/2:At this level, there is no significant disc pathology. There is no significant neural foraminal stenosis or spinal stenosis. L2/3: At this level, there is a mild diffuse disc bulge. This does not cause significant neural fora cass stenosis or spinal stenosis. L3/4: At this level, there is a diffuse disc bulge. There is facet and ligamentous hypertrophy. The re is no significant spinal stenosis. There is moderate right and mild left neural foraminal stenosi s present. L4/5: At this level, there is a mild diffuse disc bulge. There is facet and ligamentous hypertrophy present. There is a synovial cyst projecting posteriorly from the right facet. This does not projec t into the spinal canal. There is contrast enhancement associated with this finding. There is no si gnificant spinal stenosis. There is no significant neural foraminal stenosis. L5/S1:At this level, there is no significant disc pathology. There is facet and ligamentous hypertro phy present. There is no significant neural foraminal stenosis or spinal stenosis. IMPRESSION: There is an area of abnormal signal and contrast enhancement within the posterior aspect of the L3 vertebral body. This likely represents an atypical hemangioma, however a metastatic lesion cannot be ruled out. No other bony lesions are identified. There is contrast enhancement associate d with any L4-5 right-sided synovial cyst. Multilevel lumbar disc pathology and spondylopathy present as described. Please see the body of the report for description of individual disc levels. Report Dictated By: Baltazar Triana at 11/21/2018 12:17 PM Report E-Signed By: Baltazar Triana at 11/21/2018 12:24 PM WSN:[id number]
[2018-11-21 12:45] LABS: PLATELET COUNT, AUTOMATED 252 K/uL (150-450)
[2018-11-21] MEDS ORDERED: MORPHINE 4 MG/ML SDV IVP ONE (12:55)
[2018-11-21 13:30] VITALS: BP 131/87
[2018-11-21] MEDS ORDERED: DOCU-416 PO (13:37)
[2018-11-21] MEDS ORDERED: HYDR-385 PO (13:37)
== END 2018-11-21 13:50 | disposition home or self-care (01) ==
LOC: ER 10:02
DX: M54.5 Low back pain (principal)
CPT/HCPCS: 72100; 72158; 85025; 96374; 96375; 99284; A9577; J1100; J1885; J2270; 82040; 82247; 82310; 82374; 82435; 82565; 82947; 84075; 84132; 84155; 84295; 84450; 84460; 84520

== ENCOUNTER 2018-11-23 20:39 | Emergency (ER) | payer OTHER ==
[~2018-11-23 20:39] MED LIST changes: +DULA0.75; +HYDR-385 PO
--- NOTE | 2018-11-23 20:56 | ER Report ---
History and Physical Time Seen By MD: 20:55 Hx. of Stated Complaint: PATIENT STATES THAT SINCE HIS LAST VISIT TO THE ER ON SATURDAY HIS BACK PAIN HAS INCREASED, LOSING MORE ABILITY IN LEGS AND HAVING FLU LIKE SYMPTOMS (SARITHA SAUNDERS MD) HPI/ROS CHIEF COMPLAINT: Worsening low back pain, also now with cough and fever HISTORY OF PRESENT ILLNESS: This is a 63-year-old male. Recently diagnosed with an L3 lesion that looks like it may be metastatic melanoma. Was seen on and sent home with pain medicines. Since that time he is been a little bit more shortness of breath with cough and also having fevers. He may have influenza. He has worsening body aches including the low back pain. The coughing really sets the pain off. He is also having weakness now where he cannot get up from a seated position because of the pain. There does not appear to be focal weakness in the legs, it seems more like an overall weakness. He has been having some urinary incontinence the last few days as well, he is not sure if that is because he has to go and it takes him a while to try and get up to get to the bathroom or if this is true incontinence. He does have some tingling into the legs at times. Denies any bowel incontinence. No sacral anesthesia. At this point, because the weakness and trouble getting up, they're afraid to stay at home and they [place] out of town. They do have an appointment set up to see their oncologist in [place] at the [facility] in 2 days on Saturday. (SARITHA SAUNDERS MD) Allergies: Coded Allergies: codeine (Unverified Allergy, Intermediate, NAUSEA/VOMITING, 10/13/17) Home Meds Active Scripts Docusate Sodium (COLACE) 100 Mg Capsule, 100 MG PO BID, #20 CAPSULE Prov:CANDIDA TURCIOS MD 11/21/18 Hydrocodone Bit/Acetaminophen (HYDROCODON-ACETAMINOPHEN 5-325) 1 Each Tablet, 1 EACH PO Q6H for 10 Days, #14 TAB Prov:CANDIDA TURCIOS MD 11/21/18 Prednisone (PREDNISONE) 20 Mg Tablet, 40 MG PO DAILY PRN for ANXIETY for 5 Days, #10 TAB Prov:SOMMER HUNG MD 10/13/17 Peg/Electrolytes (GOLYTELY SOLUTION) 4,000 Ml Soln, 1 GAL PO ONCE, #1 GAL 0 Refills Prov:DEBORAH ARAGON MD 09/24/17 Insulin Glargine 100 Un/Ml Pen (LANTUS SOLOSTAR PEN) 100 Unit/1 Ml Insuln.pen, 50 UNIT SQ BID, #33 CART 4 Refills Prov:SAGAR MAR MD 04/03/17 Blood Sugar Diagnostic, Drum (Accu-Chek Compact Plus) 1 Each Strip, 1 STRIP ASDIRECTED 6XD, #2 BOX 11 Refills Test up to 6 times per day. Prov:SAGAR MAR MD 01/23/17 Insulin Aspart 100 Un/Ml Pen (NOVOLOG FLEXPEN) 100 Unit/1 Ml Insuln.pen, 5 UNIT SQ DIRECTED for 1 Day, #1 CART 11 Refills 5 units daily before lunch Prov:SAGAR MAR MD 01/10/17 Canagliflozin (INVOKANA) 300 Mg Tablet, 1 TAB PO DAILY, #90 TAB 3 Refills Prov:SAGAR MAR MD 12/31/16 Pen Needle, Diabetic, Safety (PEN NEEDLE) 1 Each Dis.needle, 1 EACH MC BID, #180 3 Refills Prov:SAGAR MAR MD 12/11/16 Metformin Hcl (METFORMIN HCL) 1,000 Mg Tablet, 1 TAB PO BID, #180 TAB 3 Refills Prov:SAGAR MAR MD 12/11/16 Reported Medications Dulaglutide (Trulicity) 0.75 Mg/0.5 Ml Pen.injctr, 0.75 MG Q7DAY 11/21/18 Cholecalciferol (Vitamin D3) (VITAMIN D3) 1,000 Unit Tablet, 2000 UNIT PO BID, TAB 04/28/18 Ubidecarenone (COQ-10) 100 Mg Capsule, 1 CAP PO DAILY, CAPSULE 01/10/17 Nitroglycerin (NITROGLYCERIN) Unknown Strength Tab.subl, SL Q5MIN 01/10/17 Cyanocobalamin (Vitamin B-12) (VITAMIN B-12) 500 Mcg Tablet, 1-2 TAB PO DAILY 12/11/16 Isosorbide Mononitrate (ISOSORBIDE MONONITRATE ER) 30 Mg Tab.er.24h, 30 MG PO BID 02/27/16 Lisinopril (LISINOPRIL) 20 Mg Tablet, 20 MG PO QDAY, TAB 02/27/16 Carvedilol (CARVEDILOL) 25 Mg Tablet, 25 MG PO BID, TAB 02/27/16 Turmeric Root Extract (TURMERIC) Unknown Strength Capsule, 500 MG PO TID, CAPSULE 02/07/16 Krill Oil (KRILL OIL) Unknown Strength Capsule, 500 MG PO DAILY, CAPSULE 02/07/16 Reviewed Nurses Notes: Yes (SARITHA SAUNDERS MD) Hx Smoking: Yes (PT QUIT IN 2006, SMOKED 1 PPD X 40 YEARS) Smoking Status: Former Smoker Exposure to Second Hand Smoke?: Yes Hx Substance Use Disorder: No Hx Alcohol Use: No (SARITHA SAUNDERS MD) Constitutional Vital Sign - Last 24 Hours 11/23/18 11/23/18 11/23/18 11/23/18 20:39 20:47 20:48 21:00 Temp 100.1 Pulse ??? 101 Resp 18 B/P (MAP) 153/89 153/89 (110) 156/85 (108) Pulse Ox 87 O2 Delivery Room Air 11/23/18 11/23/18 11/23/18 11/23/18 21:09 21:30 21:39 22:00 Pulse 101 100 B/P (MAP) 146/87 (106) 147/90 (109) Pulse Ox 91 92 11/23/18 11/23/18 11/23/18 11/23/18 22:09 22:30 22:30 23:00 Pulse 98 94 89 B/P (MAP) 155/94 (114) 155/94 (114) 154/93 (113) Pulse Ox 90 91 92 11/23/18 11/24/18 11/24/18 11/24/18 23:30 00:00 00:05 00:30 Pulse 83 85 B/P (MAP) 158/90 (112) 154/86 (108) 159/86 (110) Pulse Ox 92 92 92 11/24/18 11/24/18 11/24/18 11/24/18 00:35 00:45 01:00 01:05 Pulse 88 85 B/P (MAP) 161/91 (114) 145/88 (107) Pulse Ox 91 92 11/24/18 11/24/18 11/24/18 11/24/18 01:30 01:35 02:00 02:05 Pulse 86 ??? B/P (MAP) 136/88 (104) 133/85 (101) Pulse Ox 91 11/24/18 11/24/18 11/24/18 11/24/18 02:05 02:30 02:35 03:00 Pulse 80 B/P (MAP) 129/84 (99) 131/81 (98) Pulse Ox 92 91 11/24/18 11/24/18 11/24/18 11/24/18 03:05 03:10 03:15 03:20 Pulse 78 78 77 79 Pulse Ox 91 92 91 92 11/24/18 11/24/18 11/24/18 11/24/18 03:25 03:32 03:35 03:40 Pulse 77 74 73 B/P (MAP) 145/85 (105) Pulse Ox 92 90 90 11/24/18 11/24/18 11/24/18 11/24/18 03:45 03:50 03:55 04:00 Pulse 73 72 72 ??? B/P (MAP) 126/78 (94) Pulse Ox 91 91 91 89 11/24/18 11/24/18 11/24/18 11/24/18 04:05 04:15 04:20 04:25 Pulse 74 70 72 73 Pulse Ox 91 91 90 90 11/24/18 11/24/18 11/24/18 11/24/18 04:30 04:35 04:40 04:45 Pulse 75 76 71 74 Pulse Ox 90 90 90 89 11/24/18 11/24/18 11/24/18 11/24/18 04:50 04:55 05:00 05:05 Pulse 71 ??? 71 76 B/P (MAP) 143/80 (101) Pulse Ox 87 88 93 91 11/24/18 11/24/18 11/24/18 11/24/18 05:10 05:40 06:00 06:05 Pulse 79 74 B/P (MAP) 133/87 (102) Pulse Ox 89 90 91 11/24/18 11/24/18 11/24/18 11/24/18 06:35 06:45 07:00 07:15 Pulse 73 81 72 75 B/P (MAP) 138/80 (99) Pulse Ox 90 91 90 90 11/24/18 07:30 Pulse 80 Pulse Ox 90 Intake and Output 11/23/18 11/23/18 11/24/18 15:00 23:00 07:00 Intake Total 1000 ml Balance 1000 ml (ELKIN LAWRENCE MD) Physical Exam General Appearance: Alert, acute distress due to pain. Very difficult time sitting up on his own from a reclined position. Cannot stand without assistance. Eyes: Pupils equal and round no injection. ENT: Normal oral mucosa. Mucous membranes are a little dry. Rhinorrhea and post nasal drainage. Neck: Neck is supple and non tender. Respiratory: Lungs are clear, no wheezing, rales or rhonchi. Has oxygen by nasal canula at 2 liters, new for him since last visit. Cardiac: regular rate and rhythm, normal peripheral perfusion. Gastrointestinal: Abdomen is soft, nontender. Neuro: Alert and oriented x 3. Normal sensation in legs today. Has generalized weakness. No focal weakness or difference between legs on testing of hip flexors, knee extensor and flexor, ankle dorsi and plantar flexion. Normal sensation in sacral area. No focal deficits noted. Musculoskeletal: Extremities have full range of motion. Has pain in mid lumbar spine with palpation right over the spinous processes. Skin: No rashes or lesions. DIFFERENTIAL DIAGNOSIS: After history and physical exam differential diagnosis was considered for a patient with new lesion in spine with increasing pain, also with weakness and two episodes of urinary incontinence. Also with hypoxia, cough and fever, likely influenza versus other pulmonary infectious process. ([facility]) Medical Decision Making Data Points Result Diagram: 11/23/18215211/23/182152 Laboratory Hematology Test 11/23/18 20:51 11/23/18 21:53 11/23/18 22:27 Influenza Virus Type A (PCR) Positive (NEGATIVE) Influenza Virus Type B (PCR) Negative (NEGATIVE) Red Blood Count 6.01 M/uL (4.00-5.60) Mean Corpuscular Volume 85.9 fL (80.0-96.0) Mean Corpuscular Hemoglobin 29.1 pg (26.0-33.0) Mean Corpuscular Hemoglobin Concent 33.9 g/dL (32.0-36.0) Red Cell Distribution Width 14.3 % (11.5-14.5) Mean Platelet Volume 7.9 fL (7.2-11.1) Neutrophils (%) (Auto) 68.7 % (39.4-72.5) Lymphocytes (%) (Auto) 14.7 % (17.6-49.6) Monocytes (%) (Auto) 15.7 % (4.1-12.4) Eosinophils (%) (Auto) 0.4 % (0.4-6.7) Basophils (%) (Auto) 0.5 % (0.3-1.4) Nucleated RBC Relative Count (auto) 0.1 /100WBC Neutrophils # (Auto) 5.6 K/uL (2.0-7.4) Lymphocytes # (Auto) 1.2 K/uL (1.3-3.6) Monocytes # (Auto) 1.3 K/uL (0.3-1.0) Eosinophils # (Auto) 0.0 K/uL (0.0-0.5) Basophils # (Auto) 0.0 K/uL (0.0-0.1) Nucleated RBC Absolute Count (auto) 0.01 K/uL Erythrocyte Sedimentation Rate 18 mm/HOUR (0-20) Sodium Level 134 mmol/L (137-145) Potassium Level 3.9 mmol/L (3.5-5.0) Chloride Level 99 mmol/L (98-107) Carbon Dioxide Level 23 mmol/L (22-30) Blood Urea Nitrogen 13 mg/dl (9-21) Creatinine 0.60 mg/dl (0.66-1.25) Glomerular Filtration Rate Calc > 60.0 Random Glucose 232 mg/dl (75-110) Calcium Level 8.6 mg/dl (8.4-10.2) Total Bilirubin 0.5 mg/dl (0.2-1.3) Aspartate Amino Transf (AST/SGOT) 20 U/L (0-35) Alanine Aminotransferase (ALT/SGPT) 28 U/L (0-56) Alkaline Phosphatase 68 U/L (0-126) C-Reactive Protein 3.2 mg/dl (<1.0) Total Protein 7.5 g/dl (6.3-8.2) Albumin 4.2 g/dl (3.5-5.0) Urine Color Yellow Urine Clarity Clear Urine pH 5.0 pH (4.8-9.5) Urine Specific [place] 1.041 Urine Protein 30 mg/dL (NEGATIVE) Urine Glucose (UA) 500 mg/dL (NEGATIVE) Urine Ketones 20 mg/dL (NEGATIVE) Urine Blood Negative (NEGATIVE) Urine Nitrite Negative (NEGATIVE) Urine Bilirubin Negative (NEGATIVE) Urine Urobilinogen Negative mg/dL (0.2-1.9) Urine Leukocyte Esterase Negative (NEGATIVE) Urine RBC 1 /HPF (0-2/HPF) Urine WBC 1 /HPF (0-5/HPF) Urine Squamous Epithelial Cells Few /LPF (</=FEW) Urine Bacteria Negative /HPF (NONE-FEW) Urine Mucus None /HPF (NONE-FEW) Chemistry Test 11/23/18 20:51 11/23/18 21:53 11/23/18 22:27 Influenza Virus Type A (PCR) Positive (NEGATIVE) Influenza Virus Type B (PCR) Negative (NEGATIVE) White Blood Count 8.1 k/uL (4.5-11.0) Red Blood Count 6.01 M/uL (4.00-5.60) Hemoglobin 17.5 g/dL (14.0-18.0) Hematocrit 51.6 % (42.0-52.0) Mean Corpuscular Volume 85.9 fL (80.0-96.0) Mean Corpuscular Hemoglobin 29.1 pg (26.0-33.0) Mean Corpuscular Hemoglobin Concent 33.9 g/dL (32.0-36.0) Red Cell Distribution Width 14.3 % (11.5-14.5) Platelet Count 248 K/uL (150-450) Mean Platelet Volume 7.9 fL (7.2-11.1) Neutrophils (%) (Auto) 68.7 % (39.4-72.5) Lymphocytes (%) (Auto) 14.7 % (17.6-49.6) Monocytes (%) (Auto) 15.7 % (4.1-12.4) Eosinophils (%) (Auto) 0.4 % (0.4-6.7) Basophils (%) (Auto) 0.5 % (0.3-1.4) Nucleated RBC Relative Count (auto) 0.1 /100WBC Neutrophils # (Auto) 5.6 K/uL (2.0-7.4) Lymphocytes # (Auto) 1.2 K/uL (1.3-3.6) Monocytes # (Auto) 1.3 K/uL (0.3-1.0) Eosinophils # (Auto) 0.0 K/uL (0.0-0.5) Basophils # (Auto) 0.0 K/uL (0.0-0.1) Nucleated RBC Absolute Count (auto) 0.01 K/uL Erythrocyte Sedimentation Rate 18 mm/HOUR (0-20) Glomerular Filtration Rate Calc > 60.0 Calcium Level 8.6 mg/dl (8.4-10.2) Total Bilirubin 0.5 mg/dl (0.2-1.3) Aspartate Amino Transf (AST/SGOT) 20 U/L (0-35) Alanine Aminotransferase (ALT/SGPT) 28 U/L (0-56) Alkaline Phosphatase 68 U/L (0-126) C-Reactive Protein 3.2 mg/dl (<1.0) Total Protein 7.5 g/dl (6.3-8.2) Albumin 4.2 g/dl (3.5-5.0) Urine Color Yellow Urine Clarity Clear Urine pH 5.0 pH (4.8-9.5) Urine Specific [place] 1.041 Urine Protein 30 mg/dL (NEGATIVE) Urine Glucose (UA) 500 mg/dL (NEGATIVE) Urine Ketones 20 mg/dL (NEGATIVE) Urine Blood Negative (NEGATIVE) Urine Nitrite Negative (NEGATIVE) Urine Bilirubin Negative (NEGATIVE) Urine Urobilinogen Negative mg/dL (0.2-1.9) Urine Leukocyte Esterase Negative (NEGATIVE) Urine RBC 1 /HPF (0-2/HPF) Urine WBC 1 /HPF (0-5/HPF) Urine Squamous Epithelial Cells Few /LPF (</=FEW) Urine Bacteria Negative /HPF (NONE-FEW) Urine Mucus None /HPF (NONE-FEW) Urinalysis Test 11/23/18 22:27 Urine Color Yellow Urine Clarity Clear Urine pH 5.0 pH (4.8-9.5) Urine Specific [place] 1.041 Urine Protein 30 mg/dL (NEGATIVE) Urine Glucose (UA) 500 mg/dL (NEGATIVE) Urine Ketones 20 mg/dL (NEGATIVE) Urine Blood Negative (NEGATIVE) Urine Nitrite Negative (NEGATIVE) Urine Bilirubin Negative (NEGATIVE) Urine Urobilinogen Negative mg/dL (0.2-1.9) Urine Leukocyte Esterase Negative (NEGATIVE) Urine RBC 1 /HPF (0-2/HPF) Urine WBC 1 /HPF (0-5/HPF) Urine Squamous Epithelial Cells Few /LPF (</=FEW) Urine Bacteria Negative /HPF (NONE-FEW) Urine Mucus None /HPF (NONE-FEW) (ELKIN LAWRENCE MD) EKG/Imaging Imaging EXAMINATION: Chest radiograph HISTORY: Back pain COMPARISON: 08/20/2014 FINDINGS: Frontal view obtained. Lines/tubes: None. Cardiomediastinal silhouette: Normal. Lungs/pleura: Normal. Bony structures/chest wall: No significant abnormality. IMPRESSION: No acute finding. Report Dictated By: Mark Vasquez MD at 11/24/2018 12:45 AM (SARITHA SAUNDERS MD) ED Course/Re-evaluation Clinical Indication for ER IV: Hydration, IV Access ED Course After my initial discussion with the patient. Concern for influenza or other pulmonary infectious process was my first concern followed by could this be worsening with radiculopathy from problem in the low back. His influenza test came back positive and x-ray was negative for any other cardiopulmonary process. I think the fever and shortness of breath and cough is all due to the influenza. The cough is obviously worsening his low back pain. The difficulty standing up with low back pain could be that this is simply exacerbated because of the cough however it could be worsening symptoms from a new lesion in the lumbar spine as well. He has an appointment to see his oncologist coming up on Saturday, 2 days. He cannot return home safely at this time because of his inability to get up by himself and his 's not able to help him with this. Recommended that we treat his pain here in the ER and given another dose of Decadron tonight. Start him on Tamiflu. The transfer during the night time on roads and whether would not be ideal so we'll hold onto him for the night and plan on contacting his doctor in the morning for further plans. (SARITHA SAUNDERS MD) ED Course 11/24/2018 9:06:01 am I spoke with , oncology at [facility]. She has accepted the patient for admission at this time. History physical exam all pertinent lab data and imaging studies including MRI from November 21 were reviewed. She would like us to give Decadron 4 mg orally every 6 hours. She would like us to perform a postvoid residual which was done. Postvoid residual was 100 MLS. We will also give additional morphine secondary to recurrence of pain. I'll give 2 mg at this time. Patient was made aware that he will be transferred to the hospital for further evaluation. Decision to Disposition Date: Nov 24, 2018 Decision to Disposition Time: 09:08 (ELKIN LAWRENCE MD) Depart Departure Latest Vital Signs Vital Signs Date Time Temp Pulse Resp B/P (MAP) Pulse Ox O2 Delivery O2 Flow Rate FiO2 11/24/18 07:30 80 90 11/24/18 07:00 138/80 (99) 11/23/18 20:47 100.1 18 Room Air (ELKIN LAWRENCE MD) Impression: Primary Impression: Back pain Additional Impression: History of melanoma Condition: Improved Disposition: XFER TO [facility] (To Dr Dyer) Referrals: TOMASZ LORENZO BEAUTY DIRECTOR-BC, ONC (PCP) Problem Qualifiers Primary Impression: Back pain Back pain location: low back pain Chronicity: acute Back pain laterality: midline Sciatica presence: without sciatica Qualified Codes: M54.5 - Low back pain SARITHA SAUNDERS MD Nov 23, 2018 20:56 ELKIN LAWRENCE MD Nov 24, 2018 09:09
[2018-11-23] MEDS ORDERED: DIAZEPAM 10 MG TAB PO ONE (21:25)
[2018-11-23] MEDS ORDERED: MORPHINE 4 MG/ML SDV IVP ONE (21:25)
[2018-11-23] MEDS ORDERED: ONDANSETRON 4 MG/2 ML VIAL IVP ONE (21:25)
[2018-11-23 22:09] LABS: PLATELET COUNT, AUTOMATED 248 K/uL (150-450)
[2018-11-23] MEDS ORDERED: NS(*) 0.9% 1000 ML BAG 1,000 ML IV ONE (23:10)
[2018-11-24] MEDS ORDERED: APAP/HYDROCODONE 325/5 TAB PO ONE (00:45)
[2018-11-24] MEDS ORDERED: DEXAMETHASONE SOD PHOS 10MG/ML IVP ONE (00:45)
--- NOTE | 2018-11-24 00:51 | RADIOLOGY IMAGING REPORT ---
[place] [facility] [place] NAME: Osei Magana : 1955 MR: [id number] V: [id number] EXAM DATE: ORDERING PHYSICIAN: SARITHA SAUNDERS TECHNOLOGIST: Location: [facility] Patient: Osei Magana : 1955 Visit/Account:[id number] Date of Sevice: 11/23/2018 EXAMINATION: Chest radiograph HISTORY: Back pain COMPARISON: 08/20/2014 FINDINGS: Frontal view obtained. Lines/tubes: None. Cardiomediastinal silhouette: Normal. Lungs/pleura: Normal. Bony structures/chest wall: No significant abnormality. IMPRESSION: No acute finding. Report Dictated By: Mark Vasquez MD at 11/24/2018 12:45 AM Report E-Signed By: Mark Vasquez MD at 11/24/2018 12:47 AM WSN:[id number]
[2018-11-24] MEDS ORDERED: NS(*) 0.9% 1000 ML BAG 1,000 ML IV ONE (03:25)
[2018-11-24] MEDS ORDERED: OSELTAMIVIR PHOS 75 MG CAP PO ONE (07:05)
[2018-11-24] MEDS ORDERED: MORPHINE 2 MG/ML SYR IVP ONE (09:00)
[2018-11-24] MEDS ORDERED: DEXAMETHASONE 4 MG TAB PO ONE ×3 (09:00→15:05)
[2018-11-24 14:00] VITALS: BP 138/82
== END 2018-11-24 15:10 | disposition short-term general hospital (02) ==
LOC: ER 20:44
DX: M54.5 Low back pain (principal); Z85.820 Personal history of malignant melanoma of skin
CPT/HCPCS: 71045; 81001; 85025; 85651; 86140; 87502; 96361; 96374; 96375; 99285; J1100; J2270; J2405; J7030; J8540; 82040; 82247; 82310; 82374; 82435; 82565; 82947; 84075; 84132; 84155; 84295; 84450; 84460; 84520

== ENCOUNTER → 2018-11-24 | Outpatient (CLI) | payer OTHER | LOC: AMB 14:58 | PROVIDERS: ATTEND Nurse Practitioner | DX: M54.9 Dorsalgia, unspecified (principal); C43.9 Malignant melanoma of skin, unspecified; C79.51 Secondary malignant neoplasm of bone | CPT/HCPCS: A0425; A0426 ==

== ENCOUNTER 2018-12-24 08:15 | Outpatient (RCR) | payer OTHER ==
--- NOTE | 2018-12-04 08:09 | PT INITIAL EVALUATION ---
MEDICAL DIAGNOSIS: low back pain TREATMENT DIAGNOSIS: same DATE OF ONSET: 12/03/17 SUBJECTIVE: Osei Magana presents to physical therapy with complaints of low back pain that started approximately one month ago when he was splitting [employer]. He reports that he typically goes to the chiropractor and everything goes away. However, this time following the chiropractor he could not walk the next day; therefore, his brought him to the ER. In the ER, they performed imaging and thought that he had cancer in his spine and shipped him to [place] in the ambulance. He reports that he stayed down in the hospital for the remaining of the week and came to the conclusion that he does not have cancer in his spine or metastatic lesion in his spine. Therefore, he was discharged from the hospital and came how and will follow up with an oncologist in the next few weeks. However, he reports that he is confused that if he does not have cancer why would he have to follow up with the oncologist. He reports that he is feeling much better this week. He reports that he continues to feel the low back pain around his L2-L5 region and rates it to be 1/10. He reports that it feels better with standing, walking, lying, and as the day progress. He reports that the pain is worse with sitting, in the am, rising, lifting, and bending. He reports normal bladder control, normal gait mechanics, and recent imaging. He reports that he lost 20 pounds in the last few weeks. He denies night pain. He denies recent accident or surgeries. He denies pain with coughing, sneezing, and straining. Pain location is L3-5 central spinous processes and described as achy, sharp. Pain scale is 1 on a ten point pain scale. REHAB PROBLEM LIST: Increased Pain Decreased ROM Decreased Endurance Decreased Balance Decreased Function Decreased Mobility Decreased Gait PREVIOUS MEDICAL HISTORY: See EMR OCCUPATION: Retired OBJECTIVE: Posture: He demonstrates minimal forward head, increased thoracic kyphosis, and decreased lumbar lordosis. ROM: Trunk AROM: flexion, side gliding R, side gliding L: NIL with normal end feels. extension: Moderate restriction with pain Palpation: TTP: central L2-5 spinous processes Special Tests: Repeated extension in standing: pain during the movement and better following Mobility: Independent Gait: He demonstrated increased lateral trunk movements, decreased pelvic mobility, decreased velocity, increased base of support, and decreased velocity. ASSESSMENT: Osei will benefit from skilled physical therapy addressing the listed impairments. Based on today's examination, I would classify him as a derangement as we were able to abolish his resting symptoms with extension based principles. Short Term Goals 2 weeks: Pt will demonstrate directional preference to improve function and QOL. 4 weeks: If he demonstrates directional preference he will demonstrate abolished low back pain and increased trunk AROM in all directions to improve function and QOL. 6 weeks: Pt will demonstrated abolished low back pain and return to prior level of function with lifting, bending, and sitting. Patient's Goals reduce back pain and be able to lift and chop wood PLAN: Patient to be seen for Manual Therapy/STM/MET Strengthening/condition Range of Motion Spinal Stabilization Work Hardening/Cond Stretching Iontophoresis Neuromuscular Re-ed Closed Chain Program Posture/Body mechanics Gait Trg/Balance Trg Home Exercise Program Therapeutic Activities 2x/Week for 6 Weeks Please sign: SENDY Dykes signature DATE: If you have any questions, comments, or concerns about this report or plan, please contact me at . Thank you, Pratik Han, AVA BATES
--- NOTE | 2018-12-24 08:58 | PT PLAN OF CARE ---
Physician: SENDY Dykes Patient is being seen: 2x/week Therapist: Pratik Han, PT, DPT Medical Diagnosis: low back pain Treatment Diagnosis: same Date of Onset: 12/03/17 Date of Initial Evaluation: 12/03/18 Date patient was last seen: 12/24/18 Number of treatments: 6 Number of cancellations/No shows: 0 INTERVENTIONS: Manual Therapy/STM/MET Strengthening/condition Range of Motion Spinal Stabilization Work Hardening/Cond Stretching Iontophoresis Neuromuscular Re-ed Closed Chain Program Posture/Body mechanics Gait Trg/Balance Trg Home Exercise Program Therapeutic Activities GOALS: 2 weeks: Pt will demonstrate directional preference to improve function and QOL. 4 weeks: If he demonstrates directional preference he will demonstrate abolished low back pain and increased trunk AROM in all directions to improve function and QOL. 6 weeks: Pt will demonstrated abolished low back pain and return to prior level of function with lifting, bending, and sitting. PATIENT'S GOAL: reduce back pain and be able to lift and chop wood Status of Patient's Goals: MET Patient Compliance: Good Prognosis: Good Reasons for continuing therapy: This is a discharge note for Osei Magana. He reports that he is doing well. He reports that the pain has continued to decrease despite returning to his heavy lifting and working with his tractor. He reports stiffness this morning, but denies any pain. He states that his L sided chronic pain is even decreased, which he reports is saroj surprising to him. He states that the acute pain has abolished. Overall, he reports that he is doing well and feels like he can manage it on his own. He progressed well. He demonstrated directional preference for flexion, which has helped his increased trunk AROM in all direction and has continued to decrease his low back pain. He demonstrated abolished low back pain and stiffness following the session. He is independent on how to prevent reoccurrences and is also independent on his core rebuilding exercises. As a result, he will be discharged from PT to [facility]. Posture: He demonstrates minimal forward head, increased thoracic kyphosis, and decreased lumbar lordosis. ROM: Trunk AROM: flexion, side gliding R, side gliding L, and extension: NIL with normal end feels. Strength: B LE's 4+/5 to 5/5 Palpation: TTP: No longer TTP Mobility: Independent If you have any questions or concerns please contact me at [phone]. Thank you, Pratik Han, PT, DPT MTDD
== END 2018-12-24 15:48 | disposition home or self-care (01) ==
LOC: PT 08:15
PROVIDERS: ATTEND Nurse Practitioner Family
DX: M54.5 Low back pain (principal)
CPT/HCPCS: 97161

== ENCOUNTER → 2019-03-20 | Outpatient (CLI) | payer OTHER ==
[~2019-03-20] MED LIST changes: -CYAN500T38 PO; +CYAN500T39 PO; +GADOBENATE 529MG/1ML 15ML VIAL IVP ONE
--- NOTE | 2019-03-20 16:13 | RADIOLOGY IMAGING REPORT ---
FACILITY: [facility] PATIENT NAME: Osei Magana : 1955 MR: [id number] V: [id number] EXAM DATE: ORDERING PHYSICIAN: TOMASZ LORENZO TECHNOLOGIST: Location: [facility] Patient: Osei Magana : 1955 Visit/Account:[id number] Date of Sevice: 03/20/2019 EXAMINATION: MRI lumbar spine without IV contrast MRI lumbar spine with IV contrast HISTORY: Back pain, melanoma, weakness, abnormal finding on prior MRI. COMPARISON: MRI 11/21/2018. TECHNIQUE: Multi-planar, multi-sequence lumbar spine MRI was performed before and after IV contrast. CONTRAST: 10 mL of IV MultiHance FINDINGS: Alignment: Normal. Vertebral marrow signal: Lesion in the posterior inferior aspect of the L3 vertebral body is hypointe nse on T1 and T2-weighted images as well as STIR. Associated enhancement and edema have decreased sin ce the prior study. There is a T1 and T2 bright lesion more centrally within the right aspect of the L3 vertebral body co nsistent with an osseous hemangioma. Distal thoracic cord: Negative. Conus: negative, terminates at T12-L1 Cauda equina: Negative. Paravertebral soft tissues: Negative. Visualized abdominal and pelvic structures: Negative. Enhancement pattern: No other abnormal enhancement Disc Spaces: Multilevel degenerative changes as described on the prior study are stable. Synovial cy st projecting posteriorly from the right L4-5 facet with enhancement noted. IMPRESSION: 1. Edema and enhancement associated with the lesion in the posterior inferior aspect of the L3 verteb ral body have decreased since the prior study. This lesion was also present on the prior CT scan from 08/28/2018 however was not present on the CT scan from 02/26/2017. Degenerative etiology is favored. 2. No new enhancing lesions are identified. Report Dictated By: ROLA CAMPBELL at 03/20/2019 3:44 PM Report E-Signed By: ROLA CAMPBELL at 03/20/2019 4:06 PM WSN:[id number]
== END ==
LOC: MRI 00:37
PROVIDERS: ATTEND Nurse Practitioner Family
DX: R93.5 Abnormal findings on diagnostic imaging of other abdominal regions, including retroperitoneum (principal); C43.59 Malignant melanoma of other part of trunk
CPT/HCPCS: 72158; A9577